=== PATIENT | female | born 1950 | race Caucasian/White ===

== ENCOUNTER 2017-01-31 12:10 | Emergency (ER) | payer OTHER ==
[~2017-01-31] VITALS: Ht 165.1 cm; Wt 93.1 kg
[~2017-01-31 12:10] MED LIST: DIOVAN HCT 1601 EAC1; INDOCIN25 MG
[2017-01-31 12:32] LABS: POINT-OF-CARE METER ID UU13113702
[2017-01-31 12:42] LABS: EOSINOPHIL (%) 0.8 % (0-5); EOSINOPHIL COUNT 0.1 K/uL (0-0.3); HEMATOCRIT 32.6 % (36.0-46.0); IMMATURE GRANULOCYTE (%) 0.8 % (0.0-0.7); IMMATURE GRANULOCYTE COUNT 0.1 K/uL; INSTRUMENT ABS NEUTROPHIL CT 6.8 K/uL; LYMPHOCYTE COUNT 0.9 K/uL (1.0-2.8); MCH 28.9 PG (29.0-34.0); MCV 84.9 FL (83-99); MEAN PLAT.VOLUME 10.3 uM^3 (9.5-12.4); MONOCYTE (%) 4.7 % (3-12); MONOCYTE COUNT 0.4 K/uL (0-0.8); NEUTROPHIL (%) 82.4 % (45-76); NEUTROPHIL COUNT 6.8 K/uL (1.8-6.4); PLATELET COUNT 207 K/uL (156-360); RBC DIS.WIDTH-CV 12.8 % (11.8-14.6); RBC DIS.WIDTH-SD 39.5 % (39-53); RED BLOOD COUNT 3.84 M/uL (3.80-5.20); WHITE BLOOD COUNT 8.3 K/uL (4.1-10.2)
[2017-01-31 12:53] LABS: CHLORIDE 108 mEq/L (99-109); POTASSIUM 3.7 mEq/L (3.7-5.4); SODIUM 138 mEq/L (136-147)
[2017-01-31 12:55] LABS: GLUCOSE 186 mg/dL (70-99)
[2017-01-31 12:56] LABS: ANION GAP 10 MEQ/L (2-14)
[2017-01-31 12:59] LABS: GFR ESTIMATE (CALCULATED) 59 mL/min/; UREA NITROGEN (BUN) 32 mg/dL (9-23)
[2017-01-31] MEDS ORDERED: ZOFRAN4 MG PO (14:02)
[2017-01-31 14:22] VITALS: BP 150/69
== END 2017-01-31 14:23 | disposition home or self-care (01) ==
LOC: EME 12:10
PROVIDERS: Emergency Medicine
DX: R42 Dizziness and giddiness (principal); I10 Essential (primary) hypertension; E11.9 Type 2 diabetes mellitus without complications; Z85.3 Personal history of malignant neoplasm of breast; Z88.0 Allergy status to penicillin; Z88.8 Allergy status to other drugs, medicaments and biological substances
CPT/HCPCS: 70450; 80048; 82948; 85025; 93005; 99281; 99283; J2060; J2405; J7030